=== PATIENT | male | born 1995 | race Caucasian/White ===

== ENCOUNTER 2018-03-13 16:01 | Emergency (ER) | payer OTHER ==
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
[2018-03-13] MEDS ORDERED: NS(*) 0.9% 1000 ML BAG 1,000 ML IV ONE (16:09)
[2018-03-13 16:34] LABS: PLATELET COUNT, AUTOMATED 308 K/uL (150-450)
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
[2018-03-13] MEDS ORDERED: DOXY-179 PO (18:57)
[2018-03-13] MEDS ORDERED: IBUP600T22 PO (19:00)
[2018-03-13 19:09] VITALS: BP 132/85
== END 2018-03-13 19:20 | disposition home or self-care (01) ==
LOC: ER 16:06
DX: S00.83XA Contusion of other part of head, initial encounter (principal); S13.4XXA Sprain of ligaments of cervical spine, initial encounter; J32.0 Chronic maxillary sinusitis; V64.5XXA Driver of heavy transport vehicle injured in collision with heavy transport vehicle or bus in traffic accident, initial encounter
CPT/HCPCS: 70450; 70486; 71045; 72125; 72131; 74176; 81001; 83605; 83690; 85025; 96360; 99284; J7030; 82040; 82247; 82310; 82374; 82435; 82565; 82947; 84075; 84132; 84155; 84295; 84450; 84460; 84520

== ENCOUNTER → 2018-03-13 | Outpatient (CLI) | payer OTHER ==
[~2018-03-13] MED LIST: DOXY-179 PO; IBUP600T22 PO
== END ==
LOC: AMB 14:58
PROVIDERS: ATTEND Nurse Practitioner
DX: M54.5 Low back pain (principal); V69.9XXA Occupant (driver) (passenger) of heavy transport vehicle injured in unspecified traffic accident, initial encounter; Y92.411 Interstate highway as the place of occurrence of the external cause
CPT/HCPCS: A0425; A0429